=== PATIENT | male | born 1945 | race Caucasian/White ===

== ENCOUNTER 2021-01-22 14:14 | Inpatient (IN) ==
[2021-01-22] MEDS ORDERED: GLUCAGON 1 MG VIAL IM PRN (16:46)
[2021-01-22] MEDS ORDERED: DEXTROSE 50% 25 GM/50 ML VIAL IV PRN (16:46)
[2021-01-22 17:17] LABS: Basophils % 0.5 % (0.0-0.8); Eosinophils # 0.1 10*3/uL (0.0-0.87); Eosinophils % 1.8 % (0.00-10.9); Hematocrit 44.5 VOL% (42.0-52.0); Hemoglobin 15.5 GM/DL (14.0-18.0); Immature Granulocytes % 0.3 %; Immature Granulocytes Absolute 0.02 #; Lymphocytes # 1.7 10*3/uL (1.4-4.0); Mean Corpuscular HGB Conc 34.8 GM/DL (32-36); Mean Corpuscular Volume 87.4 FL (87-102); Monocytes % 10.5 % (1.7-12.7); Neutrophils % 61.9 % (38.7-73.9); Platelet Count 240 T/CUMM (130-400); Red Blood Count 5.09 MC/CUMM (3.8-5.5); Red Cell Distribution Width 12.4 % (9.3-17.3); White Blood Count 6.6 T/CUMM (4-12)
[2021-01-22 17:38] LABS: Calcium 8.9 MG/DL (8.5-10.1); Potassium 3.6 MMOL/L (3.5-5.1)
[2021-01-22] MEDS ORDERED: POTASSIUM CHLORIDE 20 MEQ TABLET PO ONE ×2 (19:05→21:00)
[2021-01-22] MEDS: APIXABAN 5 MG TABLET PO SCH (21:08)
[2021-01-22] MEDS: SODIUM CHLORIDE 0.9% 1,000 ML IV SCH (23:47)
[2021-01-23 05:44] LABS: Basophils % 0.5 % (0.0-0.8); Eosinophils # 0.2 10*3/uL (0.0-0.87); Eosinophils % 3.3 % (0.00-10.9); Hematocrit 40.1 VOL% (42.0-52.0); Hemoglobin 14.1 GM/DL (14.0-18.0); Immature Granulocytes % 0.2 %; Immature Granulocytes Absolute 0.01 #; Lymphocytes # 1.6 10*3/uL (1.4-4.0); Lymphocytes % 23.4 % (21.2-54.2); Mean Corpuscular HGB Conc 35.2 GM/DL (32-36); Mean Platelet Volume 11.4 FL (9.6-12.0); Monocytes % 11.6 % (1.7-12.7); Platelet Count 213 T/CUMM (130-400); Red Blood Count 4.61 MC/CUMM (3.8-5.5); Red Cell Distribution Width 12.6 % (9.3-17.3); White Blood Count 6.6 T/CUMM (4-12)
[2021-01-23 06:13] LABS: Calcium 8.6 MG/DL (8.5-10.1); Osmolality,Calculated 282.1 MOS/KG (273-304); Potassium 3.7 MMOL/L (3.5-5.1)
[2021-01-23] MEDS: ROSUVASTATIN 10 MG TABLET PO SCH (09:09)
[2021-01-23] MEDS: PANTOPRAZOLE 40 MG TABLET PO SCH (09:09)
[2021-01-23] MEDS: SODIUM CHLORIDE 0.9% 1,000 ML IV SCH (13:50)
[2021-01-23] MEDS ORDERED: MAGNESIUM HYDROXIDE SUSP 30 ML UDCUP PO ONE (18:04)
[2021-01-23] MEDS: APIXABAN 5 MG TABLET PO SCH (21:00)
[2021-01-24 05:54] LABS: Basophils % 0.4 % (0.0-0.8); Eosinophils # 0.2 10*3/uL (0.0-0.87); Eosinophils % 4.1 % (0.00-10.9); Hematocrit 38.1 VOL% (42.0-52.0); Hemoglobin 13.3 GM/DL (14.0-18.0); Immature Granulocytes % 0.2 %; Immature Granulocytes Absolute 0.01 #; Lymphocytes # 1.2 10*3/uL (1.4-4.0); Mean Corpuscular HGB Conc 34.9 GM/DL (32-36); Mean Platelet Volume 11.2 FL (9.6-12.0); Monocytes % 11.3 % (1.7-12.7); Platelet Count 216 T/CUMM (130-400); Red Blood Count 4.33 MC/CUMM (3.8-5.5); Red Cell Distribution Width 12.2 % (9.3-17.3); White Blood Count 5.4 T/CUMM (4-12)
[2021-01-24 06:08] LABS: PT Patient Result 10.9 SECS (9.8-11.9); Partial Thromboplastin Time 28.3 SECS (23.9-33.8)
[2021-01-24 06:15] LABS: Calcium 8.2 MG/DL (8.5-10.1); Osmolality,Calculated 286.7 MOS/KG (273-304); Potassium 3.7 MMOL/L (3.5-5.1)
[2021-01-24] MEDS ORDERED: VANCOMYCIN INJ 1,000 MG in SODIUM CHLORIDE 0.9% 250 ML IV ONE (06:30)
[2021-01-24] MEDS ORDERED: ACETAMINOPHEN 325 MG TABLET PO PRN (08:13)
[2021-01-24] MEDS: ROSUVASTATIN 10 MG TABLET PO SCH (09:10)
[2021-01-24] MEDS: APIXABAN 5 MG TABLET PO SCH ×2 (09:10→21:07)
[2021-01-24] MEDS: PANTOPRAZOLE 40 MG TABLET PO SCH (09:10)
[2021-01-24] MEDS: SODIUM CHLORIDE 0.9% 1,000 ML IV SCH (09:14)
[2021-01-24] MEDS: FLECAINIDE 50 MG TABLET PO SCH ×2 (16:05→21:07)
[2021-01-25] MEDS: SODIUM CHLORIDE 0.9% 1,000 ML IV SCH (05:54)
[2021-01-25] MEDS ORDERED: SERTRALINE 25 MG TABLET PO ONE (08:58)
[2021-01-25] MEDS ORDERED: SERTRALINE 25 MG TABLET PO SCH ×2 (09:00→21:00)
[2021-01-25] MEDS: FLECAINIDE 50 MG TABLET PO SCH ×2 (09:31→21:33)
[2021-01-25] MEDS: METOPROLOL TARTRATE 25 MG TABLET PO SCH ×2 (09:31→21:31)
[2021-01-25] MEDS: PANTOPRAZOLE 40 MG TABLET PO SCH (09:31)
[2021-01-25] MEDS: LOSARTAN 25 MG TABLET PO SCH ×2 (09:31→21:30)
[2021-01-25] MEDS: ROSUVASTATIN 10 MG TABLET PO SCH (09:31)
[2021-01-25] MEDS: APIXABAN 5 MG TABLET PO SCH ×2 (09:32→21:31)
[2021-01-25] MEDS: ACETAMINOPHEN 325 MG TABLET PO PRN (13:37)
[2021-01-25] MEDS ORDERED: hydrALAZINE 20 MG/1 ML VIAL IV PRN (17:48)
[2021-01-26] MEDS: ACETAMINOPHEN 325 MG TABLET PO PRN ×2 (01:25→06:21)
[2021-01-26] MEDS: ONDANSETRON 4 MG/2 ML VIAL IV PRN ×2 (01:33→08:31)
[2021-01-26 05:47] LABS: Basophils % 0.2 % (0.0-0.8); Eosinophils % 0.5 % (0.00-10.9); Hematocrit 38.2 VOL% (42.0-52.0); Hemoglobin 13.1 GM/DL (14.0-18.0); Immature Granulocytes % 0.4 %; Immature Granulocytes Absolute 0.03 #; Lymphocytes # 1.2 10*3/uL (1.4-4.0); Lymphocytes % 14.6 % (21.2-54.2); Mean Corpuscular HGB Conc 34.3 GM/DL (32-36); Mean Corpuscular Volume 87.6 FL (87-102); Mean Platelet Volume 10.6 FL (9.6-12.0); Monocytes % 5.4 % (1.7-12.7); Neutrophils % 78.9 % (38.7-73.9); Platelet Count 222 T/CUMM (130-400); Red Blood Count 4.36 MC/CUMM (3.8-5.5); Red Cell Distribution Width 12.2 % (9.3-17.3); White Blood Count 8.4 T/CUMM (4-12)
[2021-01-26 06:03] LABS: Calcium 8.5 MG/DL (8.5-10.1); Osmolality,Calculated 276.4 MOS/KG (273-304)
[2021-01-26] MEDS: FLECAINIDE 50 MG TABLET PO SCH (08:30)
[2021-01-26] MEDS: APIXABAN 5 MG TABLET PO SCH (08:30)
[2021-01-26] MEDS: PANTOPRAZOLE 40 MG TABLET PO SCH (08:30)
[2021-01-26] MEDS: METOPROLOL TARTRATE 25 MG TABLET PO SCH (08:30)
[2021-01-26] MEDS: LOSARTAN 25 MG TABLET PO SCH (08:30)
[2021-01-26] MEDS: ROSUVASTATIN 10 MG TABLET PO SCH (08:30)
[2021-01-26 11:49] VITALS: BP 124/72
== END 2021-01-26 16:12 | disposition home or self-care (01) | DRG 918 ==
LOC: N.TELES
PROVIDERS: ADMIT Internal Medicine; ATTEND Internal Medicine